=== PATIENT | female | born 1970 | race Caucasian/White ===

== ENCOUNTER 2017-05-30 00:23 | Emergency (ER) | payer BC, OTHER ==
[2017-05-30 00:30] VITALS: BP 134/88
--- NOTE | 2017-05-30 01:08 | ER Document Report ---
ED General - General Chief Complaint: Insect Bite Stated Complaint: POSSIBLE INSECT BITE Time Seen by Provider: 05/30/17 00:39 Notes: Patient is a 46-year-old female without significant past medical history who presents with itching, blistering and an opening wound on the left third digit. States that she woke up with this this morning and the areas become increasingly pruritic since that time. She has tried Benadryl with minimal relief. Nothing seems to worsen her symptoms. No history of similar symptoms. She did not actually see a spider bite her but believes this may be the cause. She has not seen her primary care doctor regarding today's concerns. Denies fever or constitutional symptoms. TRAVEL OUTSIDE OF THE [place] IN LAST 30 DAYS: No - Related Data Allergies/Adverse Reactions: No Known Allergies Allergy (Verified 10/01/15 13:12) Past Medical History - General Information source: Patient - Social History Smoking Status: Never Smoker Frequency of alcohol use: None Drug Abuse: None Lives with: Spouse/Significant other Family History: Arthritis, CAD Patient has suicidal ideation: No Patient has homicidal ideation: No Renal/ Medical History: Denies: Hx Peritoneal Dialysis Past Surgical History: Reports: Hx Section, Hx Tonsillectomy - Immunizations Immunizations up to date: No Hx Diphtheria, Pertussis, Tetanus Vaccination: No Review of Systems - Review of Systems Notes: Constitutional: Negative for fever. HENT: Negative for sore throat. Eyes: Negative for visual changes. Cardiovascular: Negative for chest pain. Respiratory: Negative for shortness of breath. Gastrointestinal: Negative for abdominal pain, vomiting or diarrhea. Genitourinary: Negative for dysuria. Musculoskeletal: Negative for back pain. Skin: Positive for rash over the left third finger Neurological: Negative for headaches, weakness or numbness. 10 point ROS negative except as marked above and in HPI. Physical Exam - Vital signs Vitals: Temp Pulse Resp BP Pulse Ox 99.4 F 80 16 134/88 H 97 05/30/17 00:29 05/30/17 00:29 05/30/17 00:29 05/30/17 00:29 05/30/17 00:29 Interpretation: Normal Notes: PHYSICAL EXAMINATION: GENERAL: Well-appearing, well-nourished and in no acute distress. HEAD: Atraumatic, normocephalic. EYES: sclera anicteric, conjunctiva are normal. ENT: Moist mucous membranes. NECK: Normal range of motion LUNGS: Normal work of breathing HEART: 2+ radial pulses bilaterally EXTREMITIES: no pitting or edema. No cyanosis. Flexion and extension against resistance at the DIP, PIP and MCP of the left third digit intact NEUROLOGICAL: No focal neurological deficits. Moves all extremities spontaneously and on command. PSYCH: Normal mood, normal affect. SKIN: Warm, Dry, normal turgor, there are several vesicular lesions over the dorsal aspect of the left third finger at the level of the PIP. Amount of erythema to the area. Course - Re-evaluation Re-evalutation: 05/30/17 01:00 Patient presents with a vesicular, slightly ulcerating lesion overlying the PIP of the dorsal aspect of the left 3rd finger without any evidence of associated infection. I suspect clinically this is a brown recluse bite given her clinical history and exam. No indication for further workup at this time. I recommended antihistamines and antibacterial creams. At this time will discharge with return precautions and follow-up recommendations. Verbal discharge instructions given a the bedside and opportunity for questions given. Medication warnings reviewed. Patient is in agreement with this plan and has verbalized understanding of return precautions and the need for primary care follow-up in the next 24-72 hours. - Vital Signs Vital signs: Temp Pulse Resp BP Pulse Ox 99.4 F 80 16 134/88 H 97 05/30/17 00:29 05/30/17 00:29 05/30/17 00:29 05/30/17 00:29 05/30/17 00:29 Discharge - Discharge Clinical Impression: Brown recluse spider bite Qualifiers: Encounter type: initial encounter Injury intent: accidental or unintentional Qualified Code(s): T63.331A - Toxic effect of venom of brown recluse spider, accidental (unintentional), initial encounter Condition: Good Disposition: HOME, SELF-CARE Additional Instructions: Take [id number] loratadine or cetirizine for itching. Apply triple antibiotic ointment to the area and keep it covered. Return if you develop spreading redness in the area, pus from the wounds, increasing pain, or any other symptoms that are worrisome to you.
== END 2017-05-30 01:30 | disposition home or self-care (01) ==
LOC: ER 00:23
DX: T63.331A Toxic effect of venom of brown recluse spider, accidental (unintentional), initial encounter (principal)
CPT/HCPCS: 99281